=== PATIENT | female | born 1985 | race Caucasian/White ===

== ENCOUNTER → 2019-01-18 13:53 | Outpatient (CLI) | payer SELFPAY | END | disposition home or self-care (01) | LOC: D.LDO 13:53 | PROVIDERS: ATTEND Student in an Organized Health Care Education/Training Program | DX: O36.8190 Decreased fetal movements, unspecified trimester, not applicable or unspecified (principal); Z3A.00 Weeks of gestation of pregnancy not specified ==

== ENCOUNTER 2019-03-11 10:49 | Inpatient (IN) | payer BC, OTHER ==
[~2019-03-11] VITALS: Ht 172.7 cm; Wt 106.1 kg
[2019-03-11] MEDS ORDERED: LEVOTHYROXINE150 MCG PO (11:26)
[2019-03-11] MEDS ORDERED: PROTONIX40 MG PO (11:27)
[2019-03-11 12:34] LABS: CALC OSMOLALITY 271 mosm/kg (275-300); CALCIUM 8.9 mg/dL (8.5-10.1); CARBON DIOXIDE 23.7 mmol/L (21.0-32.0); CHLORIDE - SERUM 107 mmol/L (98-107); CREATININE - SERUM 0.5 mg/dL (0.6-1.3); SODIUM 138 mmol/L (136-145); UREA NITROGEN 8 mg/dL (7-18); eGFR NON AFRICAN AMERICAN > 90 mL/min (90-120)
[2019-03-11 12:36] LABS: GLUCOSE 65 mg/dL (74-106)
[2019-03-11 12:40] LABS: BASOPHILS 0.2 % (0-2); EOSINOPHILS 0.5 % (0-7); HEMATOCRIT 33.2 % (36.0-48.0); HEMOGLOBIN 10.8 g/dL (12-16); IMMATURE GRANULOCYTES 0.6 % (0-5); LYMPHOCYTES 13.8 % (15-50); MCH 29.3 pg (26.0-34.0); MCHC 32.5 g/dL (31.0-37.0); MCV 90.2 fL (80.0-100.0); MEAN PLATELET VOLUME 9.6 fL (7.4-10.4); MONOCYTES 5.7 % (2-11); NEUTROPHILS 79.2 % (40-80); PLATELET COUNT 215 10x3/uL (130-400); RBC 3.68 10x6/uL (4.00-5.40); RDW 13.6 % (11.5-14.5); WBC 10.3 10x3/uL (4.8-10.8)
[2019-03-11 12:43] LABS: ALBUMIN 2.5 g/dL (3.4-5.0); ALKALINE PHOSPHATASE 103 U/L (46-116); ALT (SGPT) 15 U/L (10-68); BILIRUBIN - INDIRECT 0.18 mg/dL (0.00-1.00); BILIRUBIN - TOTAL 0.23 mg/dL (0.2-1.3); PROTEIN - SERUM 6.2 g/dL (6.4-8.2); URIC ACID 2.9 mg/dL (2.6-7.2)
[2019-03-11 12:44] LABS: BILIRUBIN - DIRECT 0.05 mg/dL (0.00-0.30)
[2019-03-12 00:06] VITALS: BP 135/85; Ht 172.7 cm; Wt 106.1 kg
[2019-03-12 05:14] LABS: PROTEIN - URINE 7.1 mg/dL (0.0-11.9)
[2019-03-12 07:12] LABS: RAPID PLASMA REAGIN Non Reactive (Non Reactive)
--- NOTE | 2019-03-12 19:04 | NUR ---
BEDSIDE SHIFT REPORT COMPLETED WITH MIGUEL RON TO ASSUME PATIENT CARE.
--- NOTE | 2019-03-12 19:56 | NUR ---
INFANT TO ROOM VIA OPEN CRIB PER MIGUEL VELASCO PT SITTING UP IN BED HOLDING . IV FLUIDS COMPLETED AND IV SALINE LOCKED AT THIS TIME. PT DENIES NEEDS, WILL CONTINUE TO MONITOR
[2019-03-12 19:58] VITALS: BP 142/79
--- NOTE | 2019-03-12 19:58 | NUR ---
SHIFT ASSESSMENT COMPLETED, SEE FLOWSHEET.
--- NOTE | 2019-03-12 20:20 | NUR ---
EPIDURAL CATHETER REMOVED WITH BLACK TIP INTACT. PT ASSISTED UP TO BATHROOM WITH STEADY GAIT. PT VOIDED 500ML URINE, ONE DIME SIZED CLOT NOTED. PERICARE PERFORMED WITH BETADINE/WATER AND CLEAN PAD AND PANTIES PROVIDED. PATIENT AMBULATED TO ROOM 1273 FOR ROUTINE CARE.
--- NOTE | 2019-03-12 20:30 | NUR ---
ICE WATER AND COKE PROVIDED PER PT REQUEST, DENIES OTHER NEEDS AT THIS TIME. WILL CONTINUE TO MONITOR
--- NOTE | 2019-03-12 21:40 | NUR ---
PT SITTING UP IN BED HOLDING . DENIES NEEDS AT THIS TIME, IV D/C'D FROM RIGHT HAND PER PT REQUEST. BED REMAINS LOCKED IN LOW POSITION, SIDE RAILS UP X2, CALL HUDSON AND TRAY TABLE IN REACH. SIGNIFICANT OTHER REMAINS AT BEDSIDE FOR SUPPORT.
--- NOTE | 2019-03-12 22:37 | NUR ---
ADMINISTERED TORADOL 10MG PO PER MD ORDERS AND PT REQUEST. SEE EMAR
--- NOTE | 2019-03-13 00:12 | NUR ---
PT SLEEPING WITH AUDIBLE SNORING, WILL HOLD TYLENOL AT THIS TIME.
--- NOTE | 2019-03-13 01:57 | NUR ---
INFANT TO ROOM VIA OPEN CRIB PER KRISTARN TYLENOL 1000MG PO PER MD ORDERS. DENIES PAIN OR NEEDS AT THIS TIME. WILL CONTINUE TO MONITOR
--- NOTE | 2019-03-13 03:52 | NUR ---
INFANT TO NURSERY VIA OPEN CRIB PER MIGUEL VELASCO AT THIS TIME. PT DENIES NEEDS. WILL CONTINUE TO MONITOR
--- NOTE | 2019-03-13 05:58 | NUR ---
PT RESTING QUIETLY WITH EYES CLOSED, NO DISTRESS NOTED. BED REMAINS LOCKED IN LOW POSITION, CALL HUDSON AND TRAY TABLE IN REACH.
--- NOTE | 2019-03-13 07:05 | NUR ---
REPORT RECEIVED FROM Surjit SUMNER RN.
--- NOTE | 2019-03-13 07:10 | NUR ---
BEDSIDE REPORT DEFERRED DUE TO PATIENT ASLEEP AT THIS TIME
[2019-03-13 08:00] VITALS: BP 120/74
--- NOTE | 2019-03-13 08:00 | NUR ---
ASSESSMENT COMPLETED. SEE FLOWSHEET. PT. AWAKE, SITTING UP IN BED. HAS EATEN BREAKFAST. AT BEDSIDE. NO COMPLAINTS OF PAIN AT THIS TIME.
[2019-03-13 08:02] LABS: BASOPHILS 0.1 % (0-2); EOSINOPHILS 1.4 % (0-7); HEMATOCRIT 30.7 % (36.0-48.0); HEMOGLOBIN 9.7 g/dL (12-16); IMMATURE GRANULOCYTES 0.5 % (0-5); LYMPHOCYTES 17.6 % (15-50); MCH 28.3 pg (26.0-34.0); MCHC 31.6 g/dL (31.0-37.0); MCV 89.5 fL (80.0-100.0); MEAN PLATELET VOLUME 10.1 fL (7.4-10.4); MONOCYTES 5.5 % (2-11); NEUTROPHILS 74.9 % (40-80); PLATELET COUNT 205 10x3/uL (130-400); RBC 3.43 10x6/uL (4.00-5.40); RDW 13.5 % (11.5-14.5); WBC 10.5 10x3/uL (4.8-10.8)
--- NOTE | 2019-03-13 10:00 | NUR ---
PATIENT SITTING UP IN BED WITH INFANT IN ARMS, . AT BEDSIDE. NO COMPLAINTS OR NEEDS AT THIS TIME.
--- NOTE | 2019-03-13 12:18 | NUR ---
SITTING UP IN BED WITH INFANT IN ARMS. AT BEDSIDE. NO NEEDS VOICED AT THIS TIME.
--- NOTE | 2019-03-13 13:55 | NUR ---
SLEEPING IN BED WITH LIGHTS IN ROOM DIMMED. AT BEDSIDE. INFANT ASLEEP IN OPEN CRIB.
--- NOTE | 2019-03-13 14:50 | NUR ---
ASLEEP IN BED. S/O AT BEDSIDE. INFANT IN ROOM ASLEEP IN OPEN CRIB.
--- NOTE | 2019-03-13 15:41 | NUR ---
PT AWAKE, SITTING UP IN BED WITH BABY IN ARMS . NO NEEDS AT THIS TIME. AT BEDSIDE.
--- NOTE | 2019-03-13 15:55 | NUR ---
STATES HAD SOME CRAMPING WHILE NURSING BABY AND REQUESTS PAIN MEDICINE. TYLENOL GIVEN PER ORDERS.
--- NOTE | 2019-03-13 18:46 | NUR ---
SALINE LOCK D/C'D. CATHETER INTACT. PRESSURE DRESSING APPLIED AND NO BLEEDING NOTED.
--- NOTE | 2019-03-13 19:00 | NUR ---
REPORT RECEIVED FROM MOON RIVERA. NO REPORTS OF DISTRESS RECEIVED.
[2019-03-13 19:30] VITALS: BP 130/74
--- NOTE | 2019-03-13 19:30 | NUR ---
PATIENT SITTING UP IN BED HOLDING . INFANT HANDED TO FATHER. VITAL SIGNS AND ASSESSMENT DONE. PATIENT DENIES ANY PAIN. HEART REGULAR RATE AND RHYTHM. LUNG SOUNDS CLEAR IN ALL FERNANDEZ. ABDOMEN SOFT, NONDISTENDED. BOWEL SOUNDS PRESENT X ALL QUADRANTS. FUNDUS MASSAGED. FUNDUS FIRM, 2 BELOW, AND MIDLINE. LOCHIA RUBRA WITH SCANT AMOUNT NOTED ON DEDRA PAD. NO EDEMA NOTED TO EXTREMITIES. BED IN LOWEST POSITION, SIDE RAILS UP X 2, C/L AND WATER WITHIN REACH. PATIENT DENIES ANY NEEDS OR CONCERNS.
--- NOTE | 2019-03-13 21:20 | NUR ---
PATIENT SITTING UP IN BED HOLDING . WRITTEN AND VERBAL DISCHARGE INSTRUCTIONS GIVEN TO PATIENT. PATIENT INSTRUCTED TO CALL CLINIC IN AM FOR APPOINTMENT. EDUCATION REGARDING BLEEDING, , MASTITIS, AND POST HANDOUTS FROM PHYSICIANS FROM WOMEN GIVEN. INFORMATION REGARDING SIGNS AND SYMPTOMS OF POST DEPRESSIONS ALSO GIVEN. DISCHARGE INTRUCTIONS FORMS GIVEN. SIGNED COPY OF DISCHARGE FORMS PLACED IN MEDICAL RECORD. PATIENT DENIES ANY QUESTIONS OR CONCERNS REGARDING INSTRUCTIONS. ID BANDS MATCHED BETWEEN PARENTS AND INFANT MATCHED. ID BAND # [id number]. PARENTS INSTRUCTED TO LOCK IN CARSEAT AND CALL THIS RN WHEN READY FOR CARSEAT CHECK. PARENTS VERBALIZE UNDERSTANDING.
--- NOTE | 2019-03-13 21:45 | NUR ---
PATIENT CALLED THIS RN TO ROOM TO CHECK CARSEAT. SECURELY LOCKED IN CARSEAT. FAMILY ASSISTED TO POV. SECURELY LOCKED IN BACKSEAT IN REAR FACING CARSEAT. PARENTS DENY ANY QUESTIONS OR CONCERNS REGARDING INSTRUCTIONS. NO SIGNS OF DISTRESS NOTED.
== END 2019-03-13 21:45 | disposition home or self-care (01) | DRG 807 ==
LOC: D.LDO 10:49 → D.LD 22:38 → D.LDO 03-12 00:35 → D.LD 03-12 00:35
PROVIDERS: ADMIT Obstetrics & Gynecology; ATTEND Obstetrics & Gynecology
PROC: 10E0XZZ Delivery of Products of Conception, External Approach (ICD-10-PCS; principal; 2019-03-12)
PROC: 3E033VJ Introduction of Other Hormone into Peripheral Vein, Percutaneous Approach (ICD-10-PCS; 2019-03-12)
DX: O13.4 Gestational [pregnancy-induced] hypertension without significant proteinuria, complicating childbirth (principal); Z37.0 Single live birth; Z3A.39 39 weeks gestation of pregnancy